=== PATIENT | male | born 1970 | race Hispanic/Latino ===

== ENCOUNTER 2017-06-06 08:48 | Outpatient (CLI) | payer BC ==
--- NOTE | 2017-06-06 10:38 | MRI ---
LEFT KNEE MRI WITHOUT IV CONTRAST: HISTORY: A 47-year-old male with a history of left knee pain for 2 months. Multiplanar, multisequence MRI examination of the left knee is performed. There is some nonspecific subcutaneous edema or fat stranding including the superficial prepatellar and superficial infrapatell ar regions. There is some minimal focal cartilage loss involving the medial patellar facet. Correla tion with some minimal central patellar subchondral cystic changes as well as some areas of irregular cartilage loss involving the central trochlear groove as well as some generalized cartilage loss of the medial compartment. There is a large popliteal fossa cyst measuring 3.7 x 3.8 x 6.3 cm in size. There is evidence for a flap tear involving the medial meniscus including the posterior horn with di splaced meniscal flap extending into the medial tibial recess. The lateral meniscus appears unremark able. The anterior and posterior cruciate ligaments, collateral ligament complexes, and quadriceps a nd patellar tendons are intact. No acute osteochondral defect. IMPRESSION: Flap tear medial meniscus. Some irregular cartilage loss of the femoral patellar compartment and med ial compartment. Nonspecific anterior soft tissue subcutaneous edema and fat stranding. Large popli teal fossa cyst. POS: [facility]
== END 2017-06-06 08:49 | disposition home or self-care (01) ==
LOC: SCSMRI 08:48
PROVIDERS: ATTEND Family Medicine
DX: M23.92 Unspecified internal derangement of left knee (principal); S83.242A Other tear of medial meniscus, current injury, left knee, initial encounter; R60.0 Localized edema; M71.22 Synovial cyst of popliteal space [Baker], left knee

== ENCOUNTER 2018-06-12 06:24 | Day surgery (SDC) | payer BC ==
[2018-06-11 15:42] VITALS: BMI 46.7
--- NOTE | 2018-06-12 10:34 | OP ---
DATE OF PROCEDURE: 06/12/2018 PRE-PROCEDURE DIAGNOSES: 1. Family history of colon cancer in father, age less than 50. 2. Previous history of colonoscopy about 13 years ago. He is not sure of those results. It was not performed here in our office. POSTPROCEDURE DIAGNOSIS: Normal colonoscopy except for diverticulosis coli. RECOMMENDATIONS: Repeat colonoscopy in 5 years. ANESTHESIA: TIVA. PROCEDURE IN DETAIL: The patient was informed of the risks, benefits, and possible complications of endoscopy including perforation, reaction to medication, and aspiration, informed consent was obtained. The patient brought to the endoscopy suite, where he was sedated in a gradual fashion. Once he was comfortable, rectal examination was performed. The endoscope was inserted through the anal canal through the colon and the cecum was identified by ileocecal valve and appendiceal orifice. Photo documentation was obtained. The prep was good. The scope was then slowly removed with good visualization of the mucosa. Diverticulosis coli seen in the transverse, descending, and sigmoid colon. No bleeding sites were identified. No inflammation was seen. No polyps were seen. Retroflexed views were normal. The scope was removed. The patient tolerated the procedure well with no complications. Job ID: [id number]
[2018-06-12] MEDS ORDERED: Lidocaine 1% PF 5 ML VIAL ONE (13:34)
[2018-06-12] MEDS ORDERED: PROPOFOL 200 MG/20 ML VIAL ONE (13:34)
== END 2018-06-12 10:45 | disposition home or self-care (01) ==
LOC: SDC 06:24
PROVIDERS: ATTEND Internal Medicine Gastroenterology
PROC: 0DJD8ZZ Inspection of Lower Intestinal Tract, Via Natural or Artificial Opening Endoscopic (ICD-10-PCS; principal; 2018-06-12)
DX: Z12.11 Encounter for screening for malignant neoplasm of colon (principal); K57.30 Diverticulosis of large intestine without perforation or abscess without bleeding; G47.30 Sleep apnea, unspecified; E07.9 Disorder of thyroid, unspecified; Z80.0 Family history of malignant neoplasm of digestive organs; Z87.891 Personal history of nicotine dependence; Z79.899 Other long term (current) drug therapy

== ENCOUNTER 2019-06-21 15:08 | Outpatient (CLI) | payer BC ==
--- NOTE | 2019-06-21 15:38 | RAD ---
XR Hip Rt 2-3 View HISTORY: Severe right hip pain FINDINGS: No fracture or dislocation is identified. Degenerative changes are present. IMPRESSION: Right hip prostatitis
== END 2019-06-21 15:09 | disposition home or self-care (01) ==
LOC: SCSRAD 15:08
PROVIDERS: ATTEND Family Medicine
DX: M25.551 Pain in right hip (principal); N41.9 Inflammatory disease of prostate, unspecified

== ENCOUNTER 2024-02-19 09:48 | Outpatient (CLI) | payer BC | END 2024-02-19 09:49 | disposition home or self-care (01) | LOC: SCSRAD 09:48 | PROVIDERS: ATTEND Family Medicine | DX: M54.2 Cervicalgia (principal); M25.512 Pain in left shoulder; M51.369 Other intervertebral disc degeneration, lumbar region without mention of lumbar back pain or lower extremity pain; M47.816 Spondylosis without myelopathy or radiculopathy, lumbar region; M47.812 Spondylosis without myelopathy or radiculopathy, cervical region | CPT/HCPCS: 72040; 72100 ==